=== PATIENT | male | born 1970 | race Caucasian/White ===

== ENCOUNTER 2024-03-21 10:02 | Day surgery (SDC) | payer OTHER ==
[~2024-03-21 10:02] MED LIST: Propofol 200 MG/20 ML SDV ONE
[2024-03-21] MEDS ORDERED: Sodium Chloride 0.9% 10 ML Syringe FLUSH PRN (10:15)
[2024-03-21] MEDS: Lactated Ringers 1,000 ML IV SCH (11:03)
[2024-03-21] MEDS ORDERED: Propofol 200 MG/20 ML SDV ONE (12:30)
[2024-03-21 12:49] VITALS: BP 110/67; PULSE 72
== END 2024-03-21 12:56 | disposition home or self-care (01) ==
LOC: LL.SDS 10:02
PROVIDERS: ATTEND Surgery
DX: Z12.11 Encounter for screening for malignant neoplasm of colon (principal); K62.1 Rectal polyp; D12.5 Benign neoplasm of sigmoid colon; D12.3 Benign neoplasm of transverse colon; D12.4 Benign neoplasm of descending colon; Z83.719 Family history of colon polyps, unspecified; Z79.82 Long term (current) use of aspirin; Z79.899 Other long term (current) drug therapy; Z88.0 Allergy status to penicillin; Z91.030 Bee allergy status; Z87.891 Personal history of nicotine dependence
CPT/HCPCS: 00811; J2704; J7120